=== PATIENT | male | born 1975 | race African-American/Black ===

== ENCOUNTER 2020-10-09 00:30 | Emergency (ER) | payer OTHER ==
[~2020-10-09] VITALS: Ht 175.3 cm; Wt 68.0 kg
--- NOTE | 2020-10-09 00:35 | NUR ---
Pt is BIBself C/O of chest pain on L sided tightness. Pt is alert and orientedX4. Respiration is normal in room air. No SOB. Skin is intact, warm and dry. MD at the bedside. EKG is done. Blood obtained and send to lab. Attached to station attendant, pulse ox. Pt is given warm blanket and call light is within reach.
--- NOTE | 2020-10-09 00:46 | NUR ---
X-ray at the bedside.
[2020-10-09 01:04] LABS: BASOPHILS # (AUTO) 0.1 /CMM (0.0-0.2); BASOPHILS % (AUTO) 1.4 % (0.0-2.0); EOSINOPHILS % (AUTO) 7.7 % (0.0-6.0); HEMATOCRIT 33 % (39-51); HEMOGLOBIN 10.6 g/dL (13.5-17.5); LYMPHOCYTES # (AUTO) 1.5 /CMM (0.8-4.8); LYMPHOCYTES % (AUTO) 30.9 % (20.0-44.0); MEAN CORPUSCULAR HGB CONC 32 g/dl (31.0-36.0); MEAN CORPUSCULAR VOLUME 93 fL (80-96); MONOCYTES # (AUTO) 0.5 /CMM (0.1-1.30); NEUTROPHILS # (AUTO) 2.4 /CMM (1.8-8.9); PLATELET COUNT (AUTO) 271 /CMM (150-450); RED BLOOD CELL COUNT(AUTO) 3.52 MIL/uL (4.5-6.0); WHITE BLOOD COUNT (AUTO) 4.8 K/uL (4.3-11.0)
[2020-10-09 01:27] LABS: CALCIUM, SERUM 8.9 mg/dL (8.5-10.1); CREATININE 0.5 mg/dL (0.6-1.3); POTASSIUM 3.7 mmol/L (3.5-5.1)
--- NOTE | 2020-10-09 01:40 | NUR ---
Send covid swab to lab.
--- NOTE | 2020-10-09 02:46 | NUR ---
at the bedside.
--- NOTE | 2020-10-09 03:37 | NUR ---
COVID NEGATIVE PER LAB
[2020-10-09] MEDS ORDERED: AZIT250T13 PO (04:11)
[2020-10-09] MEDS ORDERED: PRED20TA PO (04:11)
[2020-10-09] MEDS ORDERED: DEXAMETHASONE SOD PHOSPHATE 10 MG/ML VIAL IV ONE (04:30)
[2020-10-09] MEDS ORDERED: DEXAMETHASONE SOD PHOSPHATE 4 MG/ML VIAL ONE (04:31)
--- NOTE | 2020-10-09 05:18 | NUR ---
EDUCATION GIVEN. PATIENT SIGNED D/C PAPER. VSS.PATIENT IN STABLE CONDITION. PATIENT D/C WITH STABLE GAIT.
[2020-10-09 05:19] VITALS: BP 116/68
== END 2020-10-09 05:21 | disposition home or self-care (01) ==
LOC: ER 00:37
DX: R07.9 Chest pain, unspecified (principal); J18.9 Pneumonia, unspecified organism; Z20.822 Contact with and (suspected) exposure to COVID-19
CPT/HCPCS: 36415; 71045; 80048; 84484 ×2; 85025; 87426; 93005; 96374; 99285; C9803; J1100

== ENCOUNTER 2020-10-18 17:27 | Emergency (ER) | payer OTHER ==
[~2020-10-18] VITALS: Ht 177.8 cm; Wt 66.7 kg
[~2020-10-18 17:27] MED LIST: AZIT250T13 PO; PRED20TA PO
--- NOTE | 2020-10-18 17:40 | NUR ---
BIBS FOR MID LEFT CP SINCE THIS MORNING NON RADIATING. AGGRVATED INHALING WHICH MAKES HIM SOB. RATES PAIN 5/10. ALERT AND ORIENTED X4. ATTACHED TO THE MONITOR. WILL CONTINUE TO MONITOR THE PATIENT.
[2020-10-18 18:00] LABS: BASOPHILS % (AUTO) 0.2 % (0.0-2.0); EOSINOPHILS % (AUTO) 1.6 % (0.0-6.0); HEMATOCRIT 32 % (39-51); HEMOGLOBIN 10.3 g/dL (13.5-17.5); LYMPHOCYTES # (AUTO) 1.3 /CMM (0.8-4.8); LYMPHOCYTES % (AUTO) 16.2 % (20.0-44.0); MEAN CORPUSCULAR HGB CONC 33 g/dl (31.0-36.0); MEAN CORPUSCULAR VOLUME 91 fL (80-96); MONOCYTES # (AUTO) 1.3 /CMM (0.1-1.30); MONOCYTES % (AUTO) 16.5 % (2.0-12.0); NEUTROPHILS # (AUTO) 5.1 /CMM (1.8-8.9); NEUTROPHILS % (AUTO) 65.5 % (43.0-81.0); PLATELET COUNT (AUTO) 340 /CMM (150-450); RED BLOOD CELL COUNT(AUTO) 3.47 MIL/uL (4.5-6.0); WHITE BLOOD COUNT (AUTO) 7.8 K/uL (4.3-11.0)
--- NOTE | 2020-10-18 18:00 | NUR ---
BLOOD SPECIMEN COLLECTED AND SENT TO THE LAB
[2020-10-18 18:12] LABS: CALCIUM, SERUM 8.1 mg/dL (8.5-10.1); CREATININE 0.5 mg/dL (0.6-1.3); POTASSIUM 3.6 mmol/L (3.5-5.1)
[2020-10-18 18:25] LABS: ALBUMIN 2.2 g/dL (3.4-5.0); BILIRUBIN,TOTAL 0.6 mg/dL (0.2-1.0)
[2020-10-18] MEDS ORDERED: IOHEXOL-350 100 ML VIAL IV ONE (19:43)
[2020-10-18] MEDS ORDERED: IV NS 0.9% 250 ML IV ONE (19:43)
--- NOTE | 2020-10-18 19:46 | NUR ---
PT TAKEN TO CT
[2020-10-18 20:05] LABS: NEUTROPHILS % (MANUAL) 69 (42-76)
[2020-10-18 20:06] LABS: LYMPHOCYTES % (MANUAL) 21 % (16-48); MONOCYTES % (MANUAL) 10 % (0-11.0)
[2020-10-18] MEDS ORDERED: PRED50TA PO (21:05)
[2020-10-18] MEDS ORDERED: DEXAMETHASONE SOD PHOSPHATE 10 MG/ML VIAL IV ONE (21:30)
[2020-10-18] MEDS ORDERED: DEXAMETHASONE SOD PHOSPHATE 10 MG/ML VIAL ONE (21:44)
[2020-10-18 21:52] VITALS: BP 125/78
--- NOTE | 2020-10-18 21:52 | NUR ---
Patient discharged to home in stable condition. Written and verbal after care instructions given. Patient verbalizes understanding of instruction.
== END 2020-10-18 22:09 | disposition home or self-care (01) ==
LOC: ER 17:27
DX: J84.10 Pulmonary fibrosis, unspecified (principal); R07.81 Pleurodynia; Z98.890 Other specified postprocedural states; Z60.2 Problems related to living alone; Z79.899 Other long term (current) drug therapy
CPT/HCPCS: 36415; 71045; 71275; 80053; 83880; 84484 ×2; 85007; 85025; 85378; 93005 ×3; 96374; 99285; J1100; J7050; Q9967

== ENCOUNTER 2020-11-08 18:54 | Inpatient (IN) | payer OTHER ==
[~2020-11-08] VITALS: Ht 175.3 cm; Wt 67.1 kg
[~2020-11-08 18:54] MED LIST changes: +PRED50TA PO
--- NOTE | 2020-11-08 19:21 | NUR ---
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 On bronson air, breathing evenly and unlabored. Connected to the monitor and pulse ox. Kept comfortable, will continue to monitor accordingly.
--- NOTE | 2020-11-08 19:22 | NUR ---
CALLED LAB FOR COVID SWAB
[2020-11-08] MEDS ORDERED: IV NS 0.9% 500 ML BAG IV ONE (19:30)
[2020-11-08 19:47] LABS: BASOPHILS # (AUTO) 0.1 /CMM (0.0-0.2); BASOPHILS % (AUTO) 1.1 % (0.0-2.0); EOSINOPHILS % (AUTO) 2.4 % (0.0-6.0); HEMATOCRIT 28 % (39-51); HEMOGLOBIN 8.9 g/dL (13.5-17.5); LYMPHOCYTES # (AUTO) 1.7 /CMM (0.8-4.8); MEAN CORPUSCULAR HGB CONC 32 g/dl (31.0-36.0); MEAN CORPUSCULAR VOLUME 91 fL (80-96); MONOCYTES # (AUTO) 0.6 /CMM (0.1-1.30); MONOCYTES % (AUTO) 11.4 % (2.0-12.0); NEUTROPHILS # (AUTO) 2.5 /CMM (1.8-8.9); NEUTROPHILS % (AUTO) 50.1 % (43.0-81.0); PLATELET COUNT (AUTO) 358 /CMM (150-450); RED BLOOD CELL COUNT(AUTO) 3.06 MIL/uL (4.5-6.0); WHITE BLOOD COUNT (AUTO) 4.9 K/uL (4.3-11.0)
[2020-11-08 19:50] LABS: CALCIUM, SERUM 8.3 mg/dL (8.5-10.1); CARBON DIOXIDE 30 mmol/L (21-32); CREATININE 0.5 mg/dL (0.6-1.3); GLUCOSE 74 mg/dL (74-106); UREA NITROGEN, BLOOD 14 mg/dL (7-18)
[2020-11-08 20:03] LABS: CHLORIDE 103 mmol/L (98-107); POTASSIUM 4.4 mmol/L (3.5-5.1); SODIUM SERUM 136 mmol/L (136-145)
[2020-11-08] MEDS ORDERED: ASPIRIN 325 MG TABLET PO ONE (21:30)
[2020-11-08] MEDS ORDERED: NITROGLYCERIN PACKET 1 GM PACKET TOP ONE (21:30)
--- NOTE | 2020-11-08 21:52 | NUR ---
REPORT GIVEN TO [facility]AT FOR REGINALD
--- NOTE | 2020-11-08 22:07 | NUR ---
PT TRANSFERED PER [facility]
[2020-11-08] MEDS ORDERED: ONDANSETRON HCL/PF 4 MG/2 ML VIAL IVP PRN (22:30)
[2020-11-08] MEDS ORDERED: MORPHINE SULFATE INJ 2 MG/ML DISP.SYRIN IV PRN (22:30)
[2020-11-08] MEDS ORDERED: ACETAMINOPHEN 325 MG TABLET PO PRN (22:30)
[2020-11-08 23:10] VITALS: BP 140/86
--- NOTE | 2020-11-08 23:10 | NUR ---
RN ADMITTING NOTE PATIENT IS AMBULATORY AND INDEPENDENT, ALERT AND ORIENTED X4. BREATHING EVEN AND UNLABORED. TOLERATES ROOM AIR WITH 95% O2 SATURATION. DENIES CHEST PAIN OR ANY DISCOMFORT AT THIS TIME. SKIN IS INTACT. VITAL SIGNS STABLE UPON ADMISSION. ORIENTED PATIENT ON THE UNIT, ROOM, PRIMARY NURSE, CHARGE NURSE, AND HOME DELIVERY DRIVER. SAFETY MEASURES IN PLACE: BED IN LOCKED AND LOWEST POSITION, CALL LIGHT WITHIN REACH, SIDE RAILS UP. WILL MONITOR PATIENT CLOSELY. Addendum: 11/09/20 at 0004 by MICHAEL ALEXIS RN TELE MONITOR READS SR 80 BPM
[2020-11-09 06:13] LABS: BASOPHILS # (AUTO) 0.1 /CMM (0.0-0.2); BASOPHILS % (AUTO) 2.5 % (0.0-2.0); EOSINOPHILS % (AUTO) 5.8 % (0.0-6.0); HEMATOCRIT 25 % (39-51); HEMOGLOBIN 8.5 g/dL (13.5-17.5); LYMPHOCYTES # (AUTO) 1.2 /CMM (0.8-4.8); MEAN CORPUSCULAR HGB CONC 34 g/dl (31.0-36.0); MEAN CORPUSCULAR VOLUME 90 fL (80-96); MONOCYTES # (AUTO) 0.4 /CMM (0.1-1.30); MONOCYTES % (AUTO) 14.3 % (2.0-12.0); NEUTROPHILS # (AUTO) 1.2 /CMM (1.8-8.9); NEUTROPHILS % (AUTO) 38.4 % (43.0-81.0); PLATELET COUNT (AUTO) 324 /CMM (150-450); RED BLOOD CELL COUNT(AUTO) 2.84 MIL/uL (4.5-6.0); WHITE BLOOD COUNT (AUTO) 3.1 K/uL (4.3-11.0)
[2020-11-09 07:02] LABS: ALBUMIN 2.1 g/dL (3.4-5.0); BILIRUBIN,TOTAL 0.2 mg/dL (0.2-1.0); CALCIUM, SERUM 7.8 mg/dL (8.5-10.1); CREATININE 0.4 mg/dL (0.6-1.3); MAGNESIUM 1.7 mg/dL (1.8-2.4); PHOSPHORUS 3.9 mg/dL (2.5-4.9); POTASSIUM 3.9 mmol/L (3.5-5.1); TOTAL PROTEIN, SERUM 6.4 g/dL (6.4-8.2)
[2020-11-09 07:11] LABS: THYROID STIMULATING HORMONE 7.347 uIU/mL (0.358-3.74)
--- NOTE | 2020-11-09 07:25 | NUR ---
RN CLOSING NOTE PATIENT IN BED AWAKE, NO COMPLAINS OF CHEST PAIN OR ANY DISCOMFORT AT THIS TIME. BREATHING EVEN AND UNLABORED, TOLERATES RA. SAFETY MEASURES MAINTAINED. ALL ORDERS CARRIED OUT. ALL NEEDS MET AND ATTENDED. ENDORSED TO DAY SHIFT NURSE FOR REGINALD.
[2020-11-09] MEDS ORDERED: PANTOPRAZOLE 40 MG TABLET.DR PO SCH (07:30)
[2020-11-09 08:00] VITALS: BP 100/62
[2020-11-09] MEDS ORDERED: LORAZEPAM INJ 2 MG/ML VIAL IV PRN (08:30)
[2020-11-09] MEDS: DOCUSATE SODIUM 100 MG CAPSULE PO SCH ×2 (08:53→16:30)
[2020-11-09] MEDS ORDERED: FUROSEMIDE 20 MG/2 ML VIAL IV SCH (09:00)
[2020-11-09] MEDS ORDERED: Magnesium 1GM/D5W 100ML PREMIX PIGGYBACK IV ONE (09:00)
[2020-11-09] MEDS ORDERED: ASPIRIN 81 MG TAB.CHEW PO SCH (09:00)
[2020-11-09] MEDS ORDERED: ENOXAPARIN SODIUM 40 MG/0.4 ML DISP.SYRIN SQ SCH (09:00)
[2020-11-09] MEDS ORDERED: Magnesium 1GM/D5W 100ML PREMIX 100 ML IV SCH (09:30)
[2020-11-09 12:00] VITALS: BP 116/80
[2020-11-09] MEDS ORDERED: IV NS 0.9% 250 ML IV ONE (12:41)
[2020-11-09] MEDS ORDERED: METOPROLOL TARTRATE INJ 5 MG/5 ML AMPUL ONE (12:41)
[2020-11-09] MEDS ORDERED: CT SWABBABLE VALVE TRANS SET 1 EA INFUS.SET MC ONE (12:41)
[2020-11-09] MEDS ORDERED: IOHEXOL-350 100 ML VIAL IV ONE (12:41)
[2020-11-09] MEDS ORDERED: NITROGLYCERIN 0.4 MG/TAB BOTTLE ONE (12:41)
[2020-11-09] MEDS ORDERED: NITROGLYCERIN 0.4 MG/TAB BOTTLE SL ONE (13:00)
[2020-11-09] MEDS ORDERED: METOPROLOL TARTRATE INJ 5 MG/5 ML AMPUL IVP PRN (13:00)
--- NOTE | 2020-11-09 13:24 | NUR ---
Nitro SL not given during CTCA, patient came in with nitro patch of right chest wall. Report given to [facility] for REGINALD. Patient remains in stable condition upon transporting back to [place] [id number] via wheelchair.
[2020-11-09 16:00] VITALS: BP 122/70
--- NOTE | 2020-11-09 17:38 | NUR ---
DENIES PAIN,HAD CT ANGIO OF HEART.COOPERATIVE.
--- NOTE | 2020-11-09 18:15 | NUR ---
PT. REQUESTING TO BE DISCHARGED.RN CONTACTED HAYLEY WOODS NP STATING THAT PT. NEEDS TO BE CLEARED BY DR. ALVARES FIRST.INFO GIVEN TO PT. AND PT. STATED THAT HE MIGHT NEED TO LEAVE ANYWAY.ALL INFORMATION ENDORSED TO NICOLE. HOME [facility].
--- NOTE | 2020-11-09 19:45 | NUR ---
RN NOTES Received pt. sitting on his bed, wearing his own clothes , patient stated that "he needs to go home and will sign AMA paper because he has an appointment tomorrow". Explained everything to the patient when he agreed to sign AMA. patient still want to leave.. Patient stated that " he feels good , denies chest pain and SOB. supervisor finishing room made aware as well as the charge nurse and the MD
== END 2020-11-09 19:45 | disposition left against medical advice (07) | DRG 206 ==
LOC: ER 18:54 → TELE 22:40
PROVIDERS: ADMIT Internal Medicine; ATTEND Nurse Practitioner Acute Care
DX: M94.0 Chondrocostal junction syndrome [Tietze] (principal); E44.1 Mild protein-calorie malnutrition; I25.10 Atherosclerotic heart disease of native coronary artery without angina pectoris; M06.9 Rheumatoid arthritis, unspecified; D64.9 Anemia, unspecified; I50.9 Heart failure, unspecified; J84.10 Pulmonary fibrosis, unspecified; E78.5 Hyperlipidemia, unspecified; Z79.899 Other long term (current) drug therapy; E83.42 Hypomagnesemia; R94.6 Abnormal results of thyroid function studies; E03.9 Hypothyroidism, unspecified; Z20.822 Contact with and (suspected) exposure to COVID-19
CPT/HCPCS: 36415; 71045-TC; 75574; 80048-TC; 80053-TC; 80061-TC; 83735-TC; 83880; 84100-TC; 84439-TC; 84443-TC; 84484-TC; 85025-TC; 85610-TC; 87081-TC; 93307-TC; C9803; G0378; J1650; J3475; J3490; J7040; J7050; Q9967